=== PATIENT | female | born 2000 ===

== ENCOUNTER 2018-05-11 19:00 | Emergency (ER) | payer OTHER ==
[2018-05-11 19:35] VITALS: BP 118/69
--- NOTE | 2018-05-11 19:39 | UC ---
Bite Injury/Animal HPI - HPI Summary HPI Summary: This is iam Sánchez documenting for attending Sophy Jimenez MD. This patient is a 18 year old F presenting to [facility] with a chief complaint of dog bite on her right ankle since this afternoon. 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 The patient notes that the dogs vaccinations are up to date. The patient rates the pain 0/10 in severity. Symptoms aggravated by nothing. Symptoms alleviated by nothing. Patient denies numbness or tingling in toes. Patient denies walking with a limp. The patient denies taking any medications for pain. She notes that she soaked the injury in water prior to arrival. - History of Current Complaint Chief Complaint: UCBiteInjury Stated Complaint: DOG BITE,ANKLE Time Seen by Provider: 05/11/18 19:30 Hx Obtained From: Patient Hx Last Menstrual Period: 04/25/18 Severity Currently: None Pain Intensity: 0 Pain Scale Used: 0-10 Numeric Onset/Duration: Sudden Onset, Lasting Hours, Still Present Type of Bite: Pet Has Animal Been Immunized?: Yes Aggravating Factor(s): Nothing Alleviating Factor(s): Nothing Associated Signs And Symptoms: Negative: Numbness/Tingling Hx of Bite: Provoked by: - trying to break up fight between 2 dogs Animal Available for Observation: Yes Animal Control Notified: Yes - Allergies/Home Medications Allergies/Adverse Reactions: Allergies Allergy/AdvReac Type Severity Reaction Status Date / Time No Known Allergies Allergy Verified 05/11/18 19:35 PMH/Surg Hx/FS Hx/Imm Hx Previously Healthy: Yes - Surgical History Surgical History: None - Family History Known Family History: Positive: None - Social History Alcohol Use: None Substance Use Type: None Smoking Status (MU): Never Smoked Tobacco - Immunization History Most Recent Tetanus Shot: 2017 Review of Systems Constitutional: Negative - negative fever Skin: Bruising - on right ankle Gastrointestinal: Negative - negative nausea Neurological: Negative - negative numbness in toes, negative tingling in toes All Other Systems Reviewed And Are Negative: Yes Physical Exam Vital Signs: Initial Vital Signs Temp 97.7 F 05/11/18 19:30 Pulse 101 05/11/18 19:30 Resp 20 05/11/18 19:30 BP 118/69 05/11/18 19:30 Pulse Ox 100 05/11/18 19:30 Bite Injury Course/Dx - Course Course Of Treatment: Dog bite form completed. We inquired about Workmans Comp but the patient said that since she is a student it does not work. Discharge - Discharge Plan Condition: Stable Disposition: HOME Prescriptions: Amoxicillin/Clavulanate TAB* [Augmentin TAB 875*] 875 mg PO BID #20 tab Patient Education Materials: Animal Bite (ED) Referrals: [facility],[place] [Primary Care Provider] - Additional Instructions: - Taking antibiotics 2 times a day as prescribed until gone. - Anticipate increased swelling. Elevate your foot and ankle to help with swelling and discomfort over the next 1-2 days. - Okay to apply ice to areas of injury. Do not put ice directly in her skin as this can cause frostbite. Apply ice for 20 minutes at a time to 3 times a day. - Okay to alternate ibuprofen (Motrin, Advil) and Tylenol every 3 hours for pain. Take with food. Do not take for more than 2-3 days. - Monitor wounds for signs of infection. Increased redness, drainage, odor, red streaking. If you have any concerns or should return here for [facility]. - You should anticipate a call from the Department of Health to further discuss the dog's immunization status and any further recommendations. - Recovery of wound with antibiotic ointment and a bandage. Okay to wear Zelal[place] for support. - Contact [facility] or return here with any questions or concerns. - Billing Disposition and Condition Condition: STABLE Disposition: Home
[2018-05-11] MEDS ORDERED: Amoxicillin/Clavulanate TAB* 875 MG PO ONE (20:01)
== END 2018-05-11 20:15 | disposition home or self-care (01) ==
LOC: UCEAST 19:00
DX: S91.051A Open bite, right ankle, initial encounter (principal); W54.0XXA Bitten by dog, initial encounter; Y92.89 Other specified places as the place of occurrence of the external cause; Y99.8 Other external cause status
CPT/HCPCS: 99202; A9270-GY; G0463